=== PATIENT | female | born 1940 | race Caucasian/White ===

== ENCOUNTER 2018-06-04 22:22 | Emergency (ER) | payer MEDICARE, BC ==
[2018-06-04] MEDS ORDERED: Lidocaine 1% with EPINEPHrine 1:100,000 50 ML MDV INJECT STA (23:29)
[2018-06-04] MEDS ORDERED: Diphtheria,Pertussis(Acell),Tetanus Vaccine 0.5 ML SDV IM ONE (23:30)
[2018-06-04] MEDS ORDERED: Lidocaine/EPINEPHrine/Tetracaine Soln 5 ML Each TOP ONE (23:30)
--- NOTE | 2018-06-04 23:33 | EDM.PDOC ---
ED HPI GENERAL MEDICAL PROBLEM - General Stated Complaint: CUT LEFT LEG Time Seen by Provider: 06/04/18 23:27 Source of Information: Reports: Patient, RN Notes Reviewed History Limitations: Reports: No Limitations - History of Present Illness INITIAL COMMENTS - FREE TEXT/NARRATIVE: Here with her Chief complaint Injury left leg History of present illness 78-year-old female, lives in [place], she was stepping off a boat onto a dock and struck her left contreras against the edge of the dock sustaining a laceration to the leg No other injuries Immunizations not up-to-date Left Lower Leg Pain Score (Numeric/FACES): 4 - Related Data Allergies Allergy/AdvReac Type Severity Reaction Status Date / Time No Known Allergies Allergy Verified 06/04/18 23:42 Home Meds: Home Meds Loratadine [Claritin] 10 mg PO DAILY 06/04/18 [History] Meloxicam 15 mg PO DAILY 06/04/18 [History] ED ROS GENERAL - Review of Systems Review Of Systems: ROS reveals no pertinent complaints other than HPI. Skin: Reports: Wound (Laceration transverse across the lower left contreras) ED EXAM, SKIN/RASH Exam: See Below Exam Limited By: No Limitations General Appearance: Alert, No Apparent Distress, Other (Healthy-appearing female in no distress, elevated blood pressure, no difficulty speaking or breathing) Head: Atraumatic, Normocephalic Neck: Normal Inspection, Supple Respiratory/Chest: No Respiratory Distress, No Accessory Muscle Use Cardiovascular: Normal Peripheral Pulses, Regular Rate, Rhythm Extremities: Other (Transverse laceration 3 cm across the lower anterior contreras on the left, gaping) Neurological: Alert, Oriented, Normal Cognition Skin: Warm, No Rash ED SKIN PROCEDURES - Laceration/Wound Repair Left Leg Lac/Wound length In cm: 3.5 (Left contreras) Appearance: Subcutaneous, Irregular, Clean, Other (Tibia exposed) Distal NVT: Neuro & Vascular Intact, No Tendon Injury Anesthetic Type: Other (Topical LAT followed by 1% lidocaine epinephrine) Local Anesthesia - Lidocaine (Xylocaine): 1% with EPI Local Anesthetic Volume: 3cc Skin Prep: Saline Exploration/Debridement/Repair: Wound Explored, No Foreign Material Found Closed with: Sutures Suture Size: 4-0 # of Sutures: 6 Suture Type: Nylon, Interrupted, Mattress Sterile Dressing Applied: Nurse Tetanus Status Addressed: Yes Complications: No Course - Vital Signs Last Recorded V/S: Last Vital Signs Temp 36.4 C 06/04/18 23:37 Pulse 69 06/04/18 23:37 Resp 16 06/04/18 23:37 BP 183/64 H 06/04/18 23:37 Pulse Ox 96 06/04/18 23:37 - Orders/Labs/Meds Orders: Active Orders 24 hr Category Date Time Status Vaccines to be Administered [RC] PER UNIT ROUTINE Care 06/04/18 23:30 Active Meds: Medications Discontinued Medications Generic Name Dose Route Start Last Admin Trade Name Silvana PRN Reason Stop Dose Admin Diphtheria/Tetanus/Acell Pertussis 0.5 ml 06/04/18 23:30 06/05/18 00:00 Adacel IM 06/04/18 23:31 0.5 ml .ONCE ONE Administration Lidocaine/Epinephrine 10 ml 06/04/18 23:29 06/04/18 23:56 Xylocaine 1% With Epinephrine 1:100,000 INJECT 06/04/18 23:30 10 ml ONETIME STA Administration Lidocaine/Tetracaine 5 ml 06/04/18 23:30 06/04/18 23:56 Let Soln TOP 06/04/18 23:31 5 ml ONETIME ONE Administration - Re-Assessments/Exams Free Text/Narrative Re-Assessment/Exam: 06/04/18 23:32 78-year-old female with laceration to the left contreras Topical LAT Tetanus diphtheria activated pertussis booster Departure - Departure Time of Disposition: 00:36 Disposition: Home, Self-Care 01 Condition: Good Clinical Impression: Laceration of left lower leg Qualifiers: Encounter type: initial encounter Qualified Code(s): S81.812A - Laceration without foreign body, left lower leg, initial encounter - Discharge Information Instructions: Sutured Wound Care Referrals: PCP,None [Primary Care Provider] - Forms: ED Department Discharge Additional Instructions: You have 6 stitches, these need to be removed in 10-12 days Have your wound check sooner if you develop increasing pain, swelling, redness cloudy or foul-smelling discharge or red streaks going up the leg., - My Orders Last 24 Hours: My Active Orders 06/04/18 23:30 Vaccines to be Administered [RC] PER UNIT ROUTINE - Assessment/Plan Last 24 Hours: My Active Orders 06/04/18 23:30 Vaccines to be Administered [RC] PER UNIT ROUTINE
== END 2018-06-05 00:55 | disposition home or self-care (01) ==
LOC: JP.ED 22:22
DX: S81.812A Laceration without foreign body, left lower leg, initial encounter (principal); Z23 Encounter for immunization; W22.8XXA Striking against or struck by other objects, initial encounter; Y92.814 Boat as the place of occurrence of the external cause
CPT/HCPCS: 12002; 90471; 90715; 99283; A9270